=== PATIENT | female | born 1965 | race Caucasian/White ===

== ENCOUNTER 2020-03-08 08:50 | Outpatient (CLI) | payer OTHER, SELFPAY ==
--- NOTE | 2020-03-08 08:55 | US_ITS ---
WS: [id number] BILATERAL DIGITAL DIAGNOSTIC MAMMOGRAM MAMMOGRAPHY WITH CAD CLINICAL INFORMATION: LARGE MASS RT LATERAL BREAST 9 O'CLOCK HISTORY: Right breast mass COMPARISON: 012 TECHNIQUE: Bilateral CC, MLO, and ML views. FINDINGS: The breasts are composed of heterogeneous fibroglandular density, which can limit the detection of sm all underlying mass lesions. Large well-circumscribed ovoid density in the upper outer right breast d eep to the palpable marker measuring 3.6 x 2.8 cm. Ultrasound is pending. No other new abnormalities. Left breast appears stable. ULTRASOUND BREAST RIGHT TECHNIQUE: Ultrasound right breast focused area of concern. CLINICAL INFORMATION: LARGE MASS RT LATERAL BREAST 9 O'CLOCK FINDINGS: Ultrasound right breast at the 10:00 position. There is a large anechoic cyst with one or 2 septation s and some internal debris. Large cyst measures approximately 2.9 x 2.5 x 3.8 cm. Large cyst has a benign appearance however Considering the size this could be aspirated under ultrasound for decompression if desired. US/US breast RT limited* [id number] BI-RADS: 2-Benign FOLLOW UP: See Report Otherwise Recommend return to annual screening mammography.
== END 2020-03-08 08:51 | disposition home or self-care (01) ==
LOC: RAD 08:54
PROVIDERS: PCP Family Medicine; Visit Provider Family Medicine
DX: N63.15 Unspecified lump in the right breast, overlapping quadrants (principal)
CPT/HCPCS: 76642; 77066

== ENCOUNTER → 2020-09-04 13:58 | Outpatient (BNVA) | payer OTHER, SELFPAY | PROVIDERS: PCP Family Medicine; Visit Provider Obstetrics & Gynecology | DX: Z12.4 Encounter for screening for malignant neoplasm of cervix (principal); N84.1 Polyp of cervix uteri | CPT/HCPCS: 88175; 88305 ==

== ENCOUNTER 2022-09-27 07:21 | Outpatient (CLI) | payer OTHER, SELFPAY ==
--- NOTE | 2022-09-27 07:26 | MM_ITS ---
WS: [id number] Bilateral screening 3D tomosynthesis digital mammogram, 09/27/2022 Clinical Data: SCREENING Comparison: 03/08/2020, 08/13/2012, 06/15/2009 Findings: The breast parenchymal pattern shows fibroglandular tissue. There is no longer a cyst in the upper ou ter quadrant of the right breast. No spiculated masses or clustered calcifications are seen. There ar e no secondary signs of carcinoma. MM/[place] [id number] Impression: 1. Negative bilateral mammogram with disappearance of right breast cyst. 2. Recommend annual screening mammograms. BIRADS: 1-Negative FOLLOW UP: 1 Year Follow-up The CAD repairer and checker was used.
== END 2022-09-27 07:22 | disposition home or self-care (01) ==
LOC: RAD 07:21
PROVIDERS: PCP Family Medicine; Visit Provider Internal Medicine
DX: Z12.31 Encounter for screening mammogram for malignant neoplasm of breast (principal)
CPT/HCPCS: 77063; 77067

== ENCOUNTER 2022-10-22 06:14 | Outpatient (CLI) | payer OTHER, SELFPAY ==
--- NOTE | 2022-10-22 06:20 | US_ITS ---
WS: [id number] RIGHT UPPER QUADRANT ULTRASOUND HISTORY: RUQ Pain COMPARISON: None available. Liver: 12.6 cm in length. Normal size liver. No bile duct dilatation or mass. Portal Vein: Normal hepatopetal flow with monophasic waveform. Gallbladder: Abnormal gallbladder. Increased mixture of sludge and stones within the gallbladder. The re are numerous stones nearly filling the lumen along with sludge. Gallbladder wall is 2.4 mm which i s normal. No pericholecystic fluid. There may be stones in the neck of the gallbladder which a risk f or entrapment. CBD: 0.2 cm Pancreas: Normal size and echogenicity. Right kidney: 9.7 cm in length. Normal size and echogenicity. No hydronephrosis or mass. Aorta and IVC: Unremarkable abdominal aorta and IVC. No ascites. US/US abdomen limited [id number] IMPRESSION: 1. Markedly abnormal gallbladder. Gallbladder lumen is nearly completely fille d with stones and sludge. There is no pericholecystic fluid or acute cholecysti tis at this time. Recommend surgical evaluation as patient is at risk for devel oping acute cholecystitis. Stones are noted within the neck of the gallbladder. 2. No bile duct dilatation.
== END 2022-10-22 06:15 | disposition home or self-care (01) ==
LOC: RAD 06:16
PROVIDERS: PCP Internal Medicine; Visit Provider Internal Medicine
DX: K80.20 Calculus of gallbladder without cholecystitis without obstruction (principal)
CPT/HCPCS: 76705

== ENCOUNTER 2023-02-17 17:46 | Outpatient (CLI) | payer OTHER, SELFPAY ==
--- NOTE | 2023-02-17 18:20 | XRR_ITS ---
PROCEDURE INFORMATION: Exam: XR Cervical Spine Exam date and time: 02/17/2023 6:12 PM Age: 57 years old Clinical indication: Neck pain; Prior surgery; Surgery date: 6+ months; Surgery type: Neck fusion TECHNIQUE: Imaging protocol: Radiologic exam of the cervical spine. Views: 2 or 3 views. COMPARISON: No relevant prior studies available. FINDINGS: Bones/joints: No spine curvature seen. The normal cervical lordosis is maintained, without listhesis. The patient is status post C6-C7 anterior fusion. No evidence of hardware related complication. No fracture identified. Vertebral body heights are well preserved. There is multilevel degenerative changes, manifested by intervertebral disc space narrowing, endplate osteophytes and facet joint arthrosis. Spine Soft tissues: Unremarkable. XR/XR cervical spine 3V* [id number] IMPRESSION: 1. No acute injury. 2. Status post C6-C7 anterior fusion, without evidence of hardware related complication.
--- NOTE | 2023-02-17 18:20 | XRR_ITS ---
PROCEDURE INFORMATION: Exam: XR Left Shoulder Exam date and time: 02/17/2023 6:12 PM Age: 57 years old Clinical indication: Pain; Shoulder; Left; Additional info: Shoulder pain TECHNIQUE: Imaging protocol: Radiologic exam of the left shoulder. Views: 2 or more views. COMPARISON: No relevant prior studies available. FINDINGS: Bones/joints: Normal. Soft tissues: Normal. XR/XR shoulder LT min 2V* [id number] IMPRESSION: No acute findings.
== END 2023-02-17 17:47 | disposition home or self-care (01) ==
PROVIDERS: PCP Internal Medicine; Visit Provider Nurse Practitioner Family
DX: M54.2 Cervicalgia (principal); M25.512 Pain in left shoulder; G89.29 Other chronic pain; Z98.1 Arthrodesis status
CPT/HCPCS: 72040; 73030

== ENCOUNTER 2023-05-21 12:50 | Outpatient (CLI) | payer OTHER, SELFPAY ==
--- NOTE | 2023-05-21 13:11 | XR_ITS ---
WS: [id number] EXAMINATION: XR chest 2V* [id number] REASON FOR EXAM: PRE OP EXAM COMPARISON: None available. ORDER DATE: 05/21/2023 1:19 PM FINDINGS: The lungs are clear of infiltrate. The cardiac and mediastinal outlines are unremarkable. There ar e no significant pleural effusions . No significant abnormalities are noted in the spine or remainder of the bony thorax. IMPRESSION: NO ACUTE PULMONARY CHANGE.
== END 2023-05-21 12:51 | disposition home or self-care (01) ==
PROVIDERS: PCP Internal Medicine; Visit Provider Internal Medicine
DX: Z01.811 Encounter for preprocedural respiratory examination (principal)
CPT/HCPCS: 71046

== ENCOUNTER 2023-12-05 07:50 | Outpatient (CLI) | payer OTHER, SELFPAY ==
--- NOTE | 2023-12-05 07:56 | MM_ITS ---
WS: [id number] BILATERAL SCREENING DIGITAL TOMOSYNTHESIS MAMMOGRAM WITH CAD HISTORY: SCREEN COMPARISON: 09/27/2022, 03/08/2020 Bilateral CC and MLO views with tomosynthesis and synthetic mammography submitted. Computer aided det ection analyzed. Breast composition: There are scattered areas of fibroglandular density. No suspicious masses, microc alcifications or architectural distortion. Benign calcification central RIGHT breast is stable. IMPRESSION: MM/[place] [id number] BI-RADS: 2-Benign FOLLOW UP: 1 Year Follow-up
== END 2023-12-05 07:51 | disposition home or self-care (01) ==
LOC: RAD 07:51
PROVIDERS: PCP Internal Medicine; Visit Provider Internal Medicine
DX: Z12.31 Encounter for screening mammogram for malignant neoplasm of breast (principal)
CPT/HCPCS: 77063; 77067

== ENCOUNTER → 2024-11-15 15:23 | Outpatient (BNVA) | payer OTHER, SELFPAY | PROVIDERS: PCP Internal Medicine; Visit Provider Obstetrics & Gynecology | DX: N84.1 Polyp of cervix uteri (principal) | CPT/HCPCS: 88305 ==

== ENCOUNTER → 2024-11-16 11:01 | Outpatient (BNVA) | payer OTHER, SELFPAY | PROVIDERS: PCP Internal Medicine; Visit Provider Obstetrics & Gynecology | DX: Z01.419 Encounter for gynecological examination (general) (routine) without abnormal findings (principal) | CPT/HCPCS: 87624 ==

== ENCOUNTER 2025-01-12 08:02 | Outpatient (CLI) | payer OTHER, SELFPAY ==
--- NOTE | 2025-01-12 08:07 | MM_ITS ---
WS: [id number] BILATERAL SCREENING DIGITAL TOMOSYNTHESIS MAMMOGRAM WITH CAD HISTORY: SCREENING COMPARISON: 12/05/2023, 09/27/2022 Bilateral CC and MLO views with tomosynthesis and synthetic mammography submitted. Computer aided detection analyzed. Breast composition: There are scattered areas of fibroglandular density. No suspicious masses, microcalcifications or architectural distortion. Benign calcifications in each breast. LEFT axillary tail lymph nodes. MM/MM scr BI tomosynthesis [id number] IMPRESSION: BI-RADS: 2 - Benign. FOLLOW UP: 1 Year Follow-up
== END 2025-01-12 08:03 | disposition home or self-care (01) ==
LOC: RAD 08:05
PROVIDERS: PCP Internal Medicine; Visit Provider Obstetrics & Gynecology
DX: Z12.31 Encounter for screening mammogram for malignant neoplasm of breast (principal); R92.323 Mammographic fibroglandular density, bilateral breasts; R92.1 Mammographic calcification found on diagnostic imaging of breast; R59.0 Localized enlarged lymph nodes
CPT/HCPCS: 77063; 77067

== ENCOUNTER 2025-02-20 10:55 | Emergency (ER) | payer OTHER, SELFPAY ==
[2025-02-20 10:57] VITALS: BP 126/80; PULSE 81; TEMP 36.8; O2SAT 99; BMI 25.6
--- NOTE | 2025-02-20 11:09 | CTR_ITS ---
PROCEDURE INFORMATION: Exam: CT Abdomen And Pelvis With Contrast Exam date and time: 02/20/2025 11:33 AM Age: 59 years old Clinical indication: Abdominal pain; Localized; Right upper quadrant (ruq); Prior surgery; Surgery date: 6+ months; Surgery type: Gb; Additional info: Abd pain TECHNIQUE: Imaging protocol: Computed tomography of the abdomen and pelvis with contrast. Radiation optimization: All CT scans at this facility use at least one of these dose optimization techniques: automated exposure control; mA and/or kV adjustment per patient size (includes targeted exams where dose is matched to clinical indication); or iterative reconstruction. Contrast material: OMNIPAQUE 350; Contrast volume: 100 ml; Contrast route: INTRAVENOUS (IV); COMPARISON: abdomen limited [id number] 10/22/2022 6:24 AM RADIATION DOSE METRICS: Total DLP (mGy-cm): 422.2 FINDINGS: Lungs: Lung bases are clear as visulized. Liver: Small focal minimal fatty infiltration in left lobe adjacent to falciform ligament fissure. Gallbladder and biliary ducts: Cholecystectomy. Pancreas: Normal. No ductal dilation. Spleen: Normal. No splenomegaly. Adrenal glands: Normal. Kidneys and ureters: Right kidney is unremarkable. 16 x 18 mm partially exophytic minimally thick-walled cystic lesion containing minimally thick-walled cyst septation in lower pole of left kidney. Ureters are normal in caliber. No hydronephrosis. Stomach and bowel: Moderate to severe wall thickening of ascending, transverse and proximal descending colon, wall thickness measures up to 11 mm. Moderate surrounding inflammation. Moderate wall thickening of mid and distal descending and mild wall thickening of proximal sigmoid colon. No sign of obstruction terminal ileum is unremarkable. Small bowel loops are unremarkable. No free air or pneumatosis. Appendix: No evidence of appendicitis. Intraperitoneal space: Small amount of fluid in right paracolic gutter and in pelvis. No free air. No significant fluid collection. Vasculature: No abdominal aortic aneurysm. Lymph nodes: No enlarged lymph nodes. Urinary bladder: Unremarkable as visualized. Reproductive: Unremarkable as visualized. Bones/joints: No acute fracture. Soft tissues: Unremarkable. CT/CT abdomen pelvis w con* [id number] IMPRESSION: 1. Moderate to severe wall thickening and moderate surrounding inflammatory changes of ascending, transverse and proximal 3rd descending colon. Moderate wall thickening of mid and distal descending and mild wall thickening of sigmoid colon. Small ascites. Severe Acute colitis changes. No sign of obstruction. No free air or pneumatosis. Recommend short-term follow-up. 2. 16 x 18 mm complex cystic lesion in lower pole of the left kidney. Bosniak III cystic renal mass. Bosniak III masses have an intermediate probability of being malignant. If not already obtained, consider urology consultation. (Reference: Loreto) REFERENCES: Loreto RILEY, et al. Bosniak Classification of Cystic Renal Masses, Version 2019: An Update Proposal and Needs Assessment. Radiology. 2019;292(2):475-488.
--- NOTE | 2025-02-20 11:14 | ED_ITS ---
HPI - GI Bleed 2 General: Chief complaint: GI Bleed Stated complaint: abd pain & cramping Time Seen by Provider: 02/20/25 10:56 Source: patient Mode of arrival: ambulatory Limitations: no limitations History of Present Illness: 59-year-old female states has been havin g blood in her stool over the last few days states been bright red blood has had some diarrhea as well. Said some abdominal cramping denies any severe pain denies any weakness denies any history of GI bleed Associated symptoms: Denies abdominal pain, chills, fever(s), headache(s), nausea, rash or vomiting Related Data Home Medications ?Medication ?Instructions ?Recorded ?Confirmed conj estrogen-medroxyprogesterone 1 tab PO DAILY 09/0402/20/25 0.625 mg-2.5 mg tablet (Prempro) fluticasone propionate 50 2 spray intranasal DAILY 02/20/25 mcg/actuation nasal spray,suspension Previous Rx's ?Medication ?Instructions ?Recorded ciprofloxacin HCl 500 mg tablet 500 mg PO BID #14 tabs 02/20/25 (Cipro) metronidazole 500 mg tablet 500 mg PO Q8H 7 days #21 t abs 02/20/25 Allergies Allergy/AdvReac Type Severity Reaction Status Date / Time amoxicillin Allergy Intermediate rash Verified 02/20/25 11:02 Review of Systems 2 Const: Denies: fever(s), chills, body aches or change in appetite ENMT: Denies: throat pain or dental pain Card: Denies: chest pain Resp: Denies: dyspnea GI: Reports: hematochezia; Denies: abdominal pain, nausea, vomiting or diarrhea Musc: Denies: neck pain or back pain Skin/Breast: Denies: rash Neuro: Denies: headache(s) PFSH ED 2 PFSH: Medical History Well woman exam with routine gynecological exam Family History Grandmother Stroke maternal Denies family history of Colon cancer Ovarian cancer Diabetes Clotting disorder Heart disease Hyperlipidemia Breast cancer Anesthesia complication Bleeding disorder Hypertension Uterine cancer Thyroid disease Social History Smoking and tobacco/nicotine status: never used tobacco/nicotine Alcohol intake: current Alcohol intake frequency: holidays/special occasions only Alcohol type: beer Substance/Drug Use: never Physical Exam 2 Const: COMMON NORMALS: no acute distress, patient oriented x3 and healthy appearing HENMT: COMMON NORMALS: normocephalic and atraumatic HEAD & SCALP: n ormocephalic and atraumatic Eye: COMMON NORMALS: conjunctivae normal CONJUNCTIVA: Yes conjunctivae normal Neck/C-Spine: COMMON NORMALS: full ROM and supple Chest: COMMONS NORMALS: normal inspection of the chest and normal palpation of entire chest wall Resp: COMMON NORMALS: normal respiratory effort Cardio: COMMON NORMALS: regular rate, regular rhythm and No murmurs present (Cardio) RATE: regular rate RHYTHM: regular rhythm GI: COMMON NORMALS: Normal to inspection, nondistended, normoactive bowel sounds present, Soft to palpation, non-tender and no masses PALPATION: Yes Soft to palpation RECTAL EXAM: visual inspection normal and No heme positive stool Extremity: COMMON NORMALS: normal to inspection and full ROM Neuro: COMMON NORMALS: patient oriented x3, moves all extremities and no focal motor deficits Psych: COMMON NORMALS: mental status grossly normal, Normal thought process present and cooperative THOUGHT PROCESS: Normal thought process present Skin: COMMON NORMALS: no rashes or lesions noted and no wounds GENERAL SKIN EXAM: no rashes or lesions noted Course 2 Vital Signs: Vital signs: Vital Signs Temperature 98.2 F 02/20/25 10:57 Pulse Rate 74 02/20/25 11:57 Blood Pressure 136/70 02/20/25 11:57 Pulse Oximetry 96 02/20/25 11:57 Oxygen Delivery Me thod Room Air 02/20/25 10:57 MDM - GI Bleed Medical Decision Making Patient presents here with lower GI bleed CT shows a colitis does have an elevated white count it offered admission she wants to try oral antibiotics first did get stool culture will place her on Cipro Flagyl she is to follow-up with her PCP return if worsening. Medical Records I reviewed the patient's medical records. Lab Data I reviewed the patient's lab results. 02/20/25 11:14 02/20/25 11:14 Radiology Impressions Abdomen/Pelvis CT 02/20/25 11:09 IMPRESSION: 1. Moderate to severe wall thickening and moderate surrounding inflammatory changes of ascending, transverse and proximal 3rd descending colon. Moderate wall thickening of mid and distal descending and mild wall thickening of sigmoid colon. Small ascites. Severe Acute colitis changes. No sign of obstruction. No free air or pneumatosis. Recommend short-term follow-up. 2. 16 x 18 mm complex cystic lesion in lower pole of the left kidney. Bosniak III cystic renal mass. Bosniak III masses have an intermediate probability of being malignant. If not already obtained, consider urology consultation. (Reference: Loreto) REFERENCES: Loreto RILEY, et al. Bosniak Classification of Cystic Renal Masses, Version 2019: An Update Proposal and Needs Assessment. Radiology. 2019;292(2):475-488. Laboratory Results WBC 18.12 10^3/uL (3.29-11.43) H 02/20/25 11:14 RBC 5.11 10^6/uL (3.85-5.65) 02/20/25 11:14 Hgb 15.40 g/dL (11.27-16.99) 02/20/25 11:14 Hct 48.1 % (36-47) H 02/20/25 11:14 MCV 94.1 fl (85-98) 02/20/25 11:14 MCH 30.1 pg (27-33) 02/20/25 11:14 MCHC 32.0 g/dL (30-55) 02/20/25 11:14 RDW 11.9 % (12.1-15.1) L 02/20/25 11:14 Plt Count 284 10^3/cmm (157-399) 02/20/25 11:14 MPV 9.6 fL (7.4-10.4) 02/20/25 11:14 Neut % (Auto) 89.4 % 02/20/25 11:14 Lymph % (Auto) 5.1 % 02/20/25 11:14 Powell % (Auto) 5.0 % 02/20/25 11:14 Eos % (Auto) 0.0 % 02/20/25 11:14 Baso % (Auto) 0.2 % 02/20/25 11:14 Neut # (Auto) 16.20 10^3/uL (1.8-7.7) H 02/20/25 11:14 Lymph # (Auto) 0.9 10^3/uL (0.8-4.8) 02/20/25 11:14 Powell # (Auto) 0.9 10^3/uL (0.2-0.9) 02/20/25 11:14 Eos # (Auto) 0.0 10^3/uL (0.0-0.8) 02/20/25 11:14 Baso # (Auto) 0.0 10^3/uL (0.0-0.1) 02/20/25 11:14 Nucleated RBC % (auto) 0 % 02/20/25 11:14 Nucleated RBCs # 0.0 /100WBC 02/20/25 11:14 PT 12.50 SECONDS (12.1-14.9) 02/20/25 11:14 INR 0.88 (0.8-1.2) 02/20/25 11:14 Sodium 138 mmol/L (136-145) 02/20/25 11:14 Potassium 4.0 mmol/L (3.5-5.1) 02/20/25 11:14 Chloride 100 mmol/L (98-107) 02/20/25 11:14 Carbon Dioxide 24 mmol/L (22-29) 02/20/25 11:14 Anion Gap 18.0 (5-19) 02/20/25 11:14 BUN 8 mg/dL (6-20) 02/20/25 11:14 Creatinine 0.7 mg/dL (0.5-0.9) 02/20/25 11:14 GFR Calculation 85.9 mL/min (90-130) L 02/20/25 11:14 Glucose 129 mg/dL (65-115) H 02/20/25 11:14 Calculated Osmolality 286 mOsm/kg (285-295) 02/20/25 11:14 Calcium 9.3 mg/dL (8.5-10.5) 02/20/25 11:14 Total Bilirubin 0.3 mg/dL (0.15-1.2) 02/20/25 11:14 AST 11 U/L (0-32) 02/20/25 11:14 ALT 12 U/L (0-33) 02/20/25 11:14 Alkaline Phosphatase 84 U/L (35-105) 02/20/25 11:14 Total Protein 7.0 g/dL (6.6-8.7) 02/20/25 11:14 Albumin 3.8 g/dL (3.5-5.2) 02/20/25 11:14 Globulin 3.2 g/dL (1.3-4.6) 02/20/25 11:14 Lipase 17 U/L (13-60) 02/20/25 11:14 All radiology interpretation(s) finalized by discharge Discharge Plan Discharge Patient Disposition: Home Clinical Impression: Colitis Condition: Stable Prescriptions: New metronidazole 500 mg tablet 500 mg PO Q8H 7 Days Qty: 21 0RF ciprofloxacin HCl [Cipro] 500 mg tablet 500 mg PO BID Qty: 14 0RF No Action Prempro 0.625-2.5 mg tablet 1 tab PO DAILY fluticasone propionate 50 mcg/actuation spray,suspension 2 spray INTRANASAL DAILY Discharge Orders: Discharge ED (Routine); Ordered 02/20/25 Ordered By: Arleen Montiel Referrals: Chris Arteaga MD [Physician, General Surgery] - 4-7 days Iliana Viveros MD [Primary Care Provider, Internal Medicine] - 4-7 days Discharge Diet: Advance as tolerated Discharge Activity: Resume usual activity Patient Instructions: Colitis (ED) Print Language: Senegalese Coding Level of Care Code ED [employer] for [employer]
[2025-02-20 11:21] LABS: Basophils % 0.2 %; Hematocrit 48.1 % (36-47); Lymphocytes # 0.9 10^3/uL (0.8-4.8); Lymphocytes % 5.1 %; Mean Corpuscular Hemoglobin 30.1 pg (27-33); Mean Corpuscular Volume 94.1 fl (85-98); Mean Platelet Volume 9.6 fL (7.4-10.4); Monocytes # 0.9 10^3/uL (0.2-0.9); Neutrophils % 89.4 %; Nucleated Red Blood Cells % 0 %; Platelet Count 284 10^3/cmm (157-399); Red Blood Count 5.11 10^6/uL (3.85-5.65); Red Cell Distribution Width 11.9 % (12.1-15.1); White Blood Count 18.12 10^3/uL (3.29-11.43)
[2025-02-20] MEDS: iohexol 350 mg/mL 500 mL Btl (per mL) IV (11:32)
[2025-02-20 11:35] LABS: INR 0.88 (0.8-1.2)
[2025-02-20 11:42] LABS: Alanine Aminotransferase 12 U/L (0-33); Albumin Level 3.8 g/dL (3.5-5.2); Alkaline Phosphatase 84 U/L (35-105); Aspartate Amino Transferase 11 U/L (0-32); Blood Urea Nitrogen 8 mg/dL (6-20); Calcium 9.3 mg/dL (8.5-10.5); Carbon Dioxide 24 mmol/L (22-29); Chloride 100 mmol/L (98-107); Creatinine Clr Calc Pharmacy 76.6993; Globulin 3.2 g/dL (1.3-4.6); Glomerular Filtration Rate 85.9 mL/min (90-130); Glucose 129 mg/dL (65-115); Lipase 17 U/L (13-60); Osmolality Calculated 286 mOsm/kg (285-295); Sodium 138 mmol/L (136-145); Total Bilirubin 0.3 mg/dL (0.15-1.2)
[2025-02-20 11:57] VITALS: BP 136/70; PULSE 74; O2SAT 96
[2025-02-20] MEDS: metroNIDAZOLE 500 MG Tablet PO (12:32)
[2025-02-20] MEDS: ciprofloxacin 500 mg Tablet PO (12:32)
[2025-02-20 12:44] VITALS: BP 136/70; PULSE 74; O2SAT 96
[2025-02-20 13:57] LABS: C.Diff PCR (Lab) NEGATIVE (Negative)
--- NOTE | 2025-02-21 12:28 | PC.NURSE ---
Sent referral to General Surg.
== END 2025-02-20 12:45 | disposition home or self-care (01) ==
PROVIDERS: Emergency Provider Emergency Medicine; PCP Internal Medicine
DX: K52.9 Noninfective gastroenteritis and colitis, unspecified (principal)
CPT/HCPCS: 74177; 80053; 82274; 83630; 83690; 85025; 85610; 87045; 87177; 87209; 87427; 87449; 87493; 99285; J9999